=== PATIENT | female | born 1980 | race Caucasian/White ===

== ENCOUNTER 2019-05-19 23:21 | Inpatient (IN) ==
[2019-05-20 00:21] LABS: Amphetamine Screen,Urine Negative ng/mL (Cutoff=1000); Barbiturate Screen,Urine Negative ng/mL (Cutoff=200); Benzodiazepines Screen,Urine Positive ng/mL (Cutoff=200); Cannabinoid Screen,Urine Negative ng/mL (Cutoff = 50); Cocaine Screen,Urine Negative ng/mL (Cutoff= 300); Opiate Screen,Urine Negative ng/mL (Cutoff=300); Phencyclidine Screen,Urine Negative ng/mL (Cutoff=25)
[2019-05-20 00:22] LABS: Bilirubin,Urine Negative (Negative); Blood,Urine Negative (Negative); Clarity,Urine Clear (Clear); Color,Urine Yellow (Yellow); Glucose,Urine (UA) Normal (Normal); Ketones,Urine Negative (Negative); Leukocyte Esterase,Urine Negative (Negative); Nitrite,Urine Negative (Negative); PH,Urine 5.5 pH Units (5.0-8.0); Protein,Urine Trace mg/dL (Neg-Trace); Specific Gravity,Urine 1.024 (1.010-1.025); Urobilinogen,Urine Normal (Normal)
[2019-05-20 00:31] LABS: Basophils # 0.1 K/mcL (0.0-0.2); Basophils % 0.7 %; Eosinophils # 0.4 K/mcL (0.0-0.6); Eosinophils % 2.7 %; Hematocrit 39.7 % (35.3-44.9); Hemoglobin 13.6 g/dL (11.5-15.4); Immature Granulocytes % 0.4 % (0-4); Lymphocytes # 3.5 K/mcL (0.6-4.6); Lymphocytes % 26.3 %; Mean Corpuscular HGB Conc 34.3 g/dL (31.6-35.5); Mean Corpuscular Hemoglobin 30.6 pg (28.0-33.3); Mean Corpuscular Volume 89.4 fL (83.0-100.0); Mean Platelet Volume 9.5 fL (9.4-12.4); Monocytes # 1.1 K/mcL (0.0-1.3); Monocytes % 8.5 %; Neutrophils # 8.2 K/mcL (1.6-8.9); Platelet Count 306 K/mcL (140-400); Red Blood Count 4.44 M/mcL (3.82-4.97); Segmented Neutrophils % 61.4 %; White Blood Count 13.3 K/mcL (4.3-11.1)
[2019-05-20 00:49] LABS: Acetaminophen < 10 mcg/mL (10-20); BUN/Creatinine Ratio 11 (6-26); Blood Urea Nitrogen 8 mg/dL (6-20); Calcium 8.9 mg/dL (8.6-10.3); Carbon Dioxide 23 mEq/L (23-29); Chloride 105 mEq/L (98-107); Ethanol < 10 mg/dL (Less than 10); Glucose 109 mg/dL (70-105); Osmolality,Calculated 283 (280-300); Potassium 3.6 mEq/L (3.5-5.1); Salicylate < 2.5 mg/dL (15.0-30.0); Sodium 137 mEq/L (136-145); eGFR For African Americans > 60 (> 60); eGFR For Non-African Americans > 60 (> 60)
[2019-05-20] MEDS ORDERED: *HR* LORazepam 1 MG TABLET PO ONE (02:11)
[2019-05-20] MEDS ORDERED: Nicotine 21 MG PATCH.TD24 TD ONE (03:30)
[2019-05-20] MEDS ORDERED: Mag Hydrox/Al Hydrox/Simeth 30 ML UDC PO PRN (03:57)
[2019-05-20] MEDS ORDERED: Haloperidol Lactate 5 MG/ML VIAL IM PRN (03:57)
[2019-05-20] MEDS ORDERED: *HR* LORazepam 1 MG TABLET PO PRN (03:57)
[2019-05-20] MEDS ORDERED: traZODone 50 MG TABLET PO PRN (03:57)
[2019-05-20] MEDS ORDERED: MOM Conc 10 ML UD.LIQ PO PRN (03:57)
[2019-05-20] MEDS ORDERED: Ibuprofen 400 MG TABLET PO PRN (03:57)
[2019-05-20] MEDS ORDERED: *HR* LORazepam 2 MG/ML VIAL IM PRN (03:57)
[2019-05-20] MEDS ORDERED: Nicotine 21 MG PATCH.TD24 TD SCH (09:00)
[2019-05-20] MEDS: hydrOXYzine pamoate 25 MG CAPSULE PO PRN ×3 (10:15→21:34)
[2019-05-20] MEDS: Nicotine 21 MG PATCH.TD24 TD SCH (10:15)
[2019-05-20] MEDS ORDERED: diazePAM 10 MG TABLET PO PRN (11:08)
[2019-05-20] MEDS ORDERED: *HR* HYDROcodone/Acet 5/325 mg TABLET PO PRN (11:11)
[2019-05-20] MEDS: tiZANidine 4 MG TABLET PO PRN (21:33)
[2019-05-20] MEDS: Lithium Carbonate 300 MG CAPSULE PO SCH (21:34)
[2019-05-21] MEDS: hydrOXYzine pamoate 25 MG CAPSULE PO PRN ×3 (08:13→20:17)
[2019-05-21] MEDS: Lithium Carbonate 300 MG CAPSULE PO SCH ×2 (08:13→20:17)
[2019-05-21] MEDS: Nicotine 21 MG PATCH.TD24 TD SCH (08:14)
[2019-05-21] MEDS: diazePAM 10 MG TABLET PO PRN (12:14)
[2019-05-21] MEDS: tiZANidine 4 MG TABLET PO PRN (20:17)
[2019-05-21] MEDS ORDERED: Famotidine 20 MG TABLET PO SCH (21:00)
[2019-05-22 08:11] VITALS: BP 137/82
[2019-05-22] MEDS: Lithium Carbonate 300 MG CAPSULE PO SCH (08:28)
[2019-05-22] MEDS: Nicotine 21 MG PATCH.TD24 TD SCH (08:28)
[2019-05-22] MEDS: hydrOXYzine pamoate 25 MG CAPSULE PO PRN (08:30)
[2019-05-22] MEDS ORDERED: hydrOXYzine pamoate 25 MG CAPSULE PO PRN (09:48)
[2019-05-22] MEDS: diazePAM 10 MG TABLET PO PRN (10:21)
== END 2019-05-22 11:00 | disposition home or self-care (01) | DRG 751 ==
LOC: EMEROOARM 23:21 → 1ANU 05-20 03:46
PROVIDERS: ADMIT Psychiatry & Neurology Psychiatry; ATTEND Psychiatry & Neurology Psychiatry

== ENCOUNTER 2021-02-21 21:45 | Inpatient (IN) ==
[2021-02-21 22:42] LABS: Basophils # 0.1 K/mcL (0.0-0.2); Basophils % 0.3 %; Hematocrit 40.6 % (35.3-44.9); Immature Granulocytes % 0.5 % (0-4); Lymphocytes # 1.5 K/mcL (0.6-4.6); Lymphocytes % 8.1 %; Mean Corpuscular HGB Conc 34.5 g/dL (31.6-35.5); Mean Corpuscular Hemoglobin 29.5 pg (28.0-33.3); Mean Corpuscular Volume 85.5 fL (83.0-100.0); Mean Platelet Volume 8.5 fL (9.4-12.4); Monocytes # 0.7 K/mcL (0.0-1.3); Monocytes % 3.9 %; Neutrophils # 15.7 K/mcL (1.6-8.9); Platelet Count 320 K/mcL (140-400); Red Blood Count 4.75 M/mcL (3.82-4.97); Red Cell Distribution Width 13.4 % (11.5-14.5); Segmented Neutrophils % 87.2 %
[2021-02-21 22:48] LABS: Bilirubin,Urine Negative (Negative); Blood,Urine Negative (Negative); Clarity,Urine Clear (Clear); Color,Urine Colorless (Yellow); Glucose,Urine (UA) Normal (Normal); Ketones,Urine Negative (Negative); Leukocyte Esterase,Urine Negative (Negative); Nitrite,Urine Negative (Negative); Protein,Urine Negative (Neg-Trace); RBC,Urine 0-3 per hpf (0-3); Specific Gravity,Urine < 1.005 (1.010-1.025); Squamous Epithelial Cell,Urine Few per hpf (None-Few); Urobilinogen,Urine Normal (Normal); WBC,Urine 0-3 per hpf (0-3)
[2021-02-21 22:49] LABS: Amphetamine Screen,Urine Negative ng/mL (Cutoff=1000); Barbiturate Screen,Urine Negative ng/mL (Cutoff=200); Benzodiazepines Screen,Urine Negative ng/mL (Cutoff=200); Cannabinoid Screen,Urine Negative ng/mL (Cutoff = 50); Cocaine Screen,Urine Negative ng/mL (Cutoff= 300); Opiate Screen,Urine Positive ng/mL (Cutoff=300); Phencyclidine Screen,Urine Negative ng/mL (Cutoff=25)
[2021-02-21 23:13] LABS: Influenza A PCR Negative (Negative); Influenza B PCR Negative (Negative); Resp. Syncytial Virus PCR Negative (Negative)
[2021-02-21 23:14] LABS: SARS-CoV-2 by PCR (In House) Negative (Negative)
[2021-02-21 23:28] LABS: Acetaminophen < 10 mcg/mL (10-20); BUN/Creatinine Ratio 8 (6-26); Blood Urea Nitrogen 6 mg/dL (6-20); Calcium 9.1 mg/dL (8.6-10.3); Carbon Dioxide 22 mEq/L (23-29); Chloride 102 mEq/L (98-107); Ethanol < 10 mg/dL (Less than 10); Glucose 210 mg/dL (70-105); Osmolality,Calculated 282 (280-300); Potassium 3.7 mEq/L (3.5-5.1); Salicylate < 2.5 mg/dL (15.0-30.0); Sodium 134 mEq/L (136-145); eGFR For African Americans > 60 (> 60); eGFR For Non-African Americans > 60 (> 60)
[2021-02-22] MEDS ORDERED: *HR* LORazepam 0.5 MG TABLET PO ONE (02:04)
[2021-02-22] MEDS ORDERED: traZODone 50 MG TABLET PO PRN (02:15)
[2021-02-22] MEDS ORDERED: haloperidoL 5 MG TABLET PO PRN (02:15)
[2021-02-22] MEDS ORDERED: Haloperidol Lactate 5 MG/ML VIAL IM PRN (02:15)
[2021-02-22] MEDS ORDERED: *HR* LORazepam 2 MG/ML VIAL IM PRN (02:15)
[2021-02-22] MEDS ORDERED: hydrOXYzine pamoate 25 MG CAPSULE PO PRN (02:15)
[2021-02-22] MEDS ORDERED: Acetaminophen 325 MG TABLET PO PRN (02:15)
[2021-02-22] MEDS ORDERED: *HR* LORazepam 1 MG TABLET PO PRN (02:15)
[2021-02-22] MEDS ORDERED: Ibuprofen 400 MG TABLET PO PRN (02:15)
[2021-02-22] MEDS ORDERED: Methadone Oral Concentrate 50 MG/5 ML UDC PO ONE (05:30)
[2021-02-22] MEDS ORDERED: *HR* HYDROcodone/Acet 5/325 mg TABLET PO PRN (11:25)
[2021-02-22] MEDS ORDERED: SUMAtriptan succinate 50 MG TABLET PO PRN (12:16)
[2021-02-22] MEDS: *HR* OxyCODONE/APAP 7.5/325 TABLET PO PRN ×2 (13:11→21:08)
[2021-02-22] MEDS: Loratadine 10 MG TABLET PO SCH (13:41)
[2021-02-22] MEDS: Ibuprofen 800 MG TABLET PO PRN ×2 (13:41→23:59)
[2021-02-22] MEDS: ALPRAZolam 0.5 MG TABLET PO SCH ×2 (13:41→21:06)
[2021-02-22] MEDS: tiZANidine 4 MG TABLET PO PRN ×2 (13:41→21:08)
[2021-02-22] MEDS: Gabapentin 400 MG CAPSULE PO SCH ×2 (18:49→21:06)
[2021-02-22] MEDS: traZODone 50 MG TABLET PO PRN (21:08)
[2021-02-22] MEDS: rOPINIRole 0.25 MG TABLET PO PRN (21:08)
[2021-02-23] MEDS: *HR* OxyCODONE/APAP 7.5/325 TABLET PO PRN ×3 (08:26→20:25)
[2021-02-23] MEDS: Gabapentin 400 MG CAPSULE PO SCH ×3 (08:27→20:25)
[2021-02-23] MEDS: Loratadine 10 MG TABLET PO SCH (08:27)
[2021-02-23] MEDS: Ibuprofen 800 MG TABLET PO PRN ×3 (08:27→20:26)
[2021-02-23] MEDS: ALPRAZolam 0.5 MG TABLET PO SCH ×2 (08:27→20:23)
[2021-02-23] MEDS: tiZANidine 4 MG TABLET PO PRN ×3 (08:28→20:24)
[2021-02-23] MEDS: Nicotine 21 MG PATCH.TD24 TD SCH (11:03)
[2021-02-23] MEDS: hydrOXYzine pamoate 25 MG CAPSULE PO PRN ×2 (15:30→20:24)
[2021-02-23] MEDS: rOPINIRole 0.25 MG TABLET PO PRN (20:24)
[2021-02-23] MEDS: traZODone 50 MG TABLET PO PRN (20:25)
[2021-02-24 08:43] VITALS: BP 141/96; PULSE 78; TEMP 98.3; O2SAT 99
[2021-02-24] MEDS: Loratadine 10 MG TABLET PO SCH (08:50)
[2021-02-24] MEDS: ALPRAZolam 0.5 MG TABLET PO SCH (08:50)
[2021-02-24] MEDS: Gabapentin 400 MG CAPSULE PO SCH ×2 (08:50→14:10)
[2021-02-24] MEDS: tiZANidine 4 MG TABLET PO PRN ×2 (08:50→14:09)
[2021-02-24] MEDS: Ibuprofen 800 MG TABLET PO PRN ×2 (08:51→14:10)
[2021-02-24] MEDS: Nicotine 21 MG PATCH.TD24 TD SCH (08:51)
[2021-02-24] MEDS: *HR* OxyCODONE/APAP 7.5/325 TABLET PO PRN ×2 (08:51→14:09)
[2021-02-24] MEDS ORDERED: lamoTRIgine 25 MG TABLET PO SCH (10:30)
== END 2021-02-24 15:30 | disposition home or self-care (01) | DRG 751 ==
LOC: EMEROOARM 21:45 → INTOOBSV 02-22 02:22 → 1ANU 02-22 02:22
PROVIDERS: ADMIT Psychiatry & Neurology Psychiatry; ATTEND Psychiatry & Neurology Psychiatry